=== PATIENT | male | born 1930 | race Caucasian/White ===

== ENCOUNTER 2017-02-08 21:45 | Emergency (ER) | payer MEDICARE, BC ==
--- NOTE | ~2017-02-08 | CR63 ---
[facility] A Service of [facility] RADIOLOGY TEXT RESULTS PATIENT: SANJANA WEST LOCATION: [facility] : 32 UNIT #: [id number] AGE: [address]: Shaggy Mendoza MD SEX: M ORDER DR: [id number] [facility] [address] [place], [place] [address] [id number] MR#: [id number] Acc #: [id number] NAME: SANJANA WEST : 1930 SEX: M STUDY DATE/TIME: 02/08/2017 23:12 UNIT: [facility] ROOM: STUDY DESCRIPTION: CR Chest 2 View Attending Physician: Shaggy Mendoza M.D. Ordering Physician: Shaggy Mendoza M.D. Primary Care Physician: Primary Care Physician No MEDICAL IMAGING REPORT This report is preliminary unless electronic signature is present EXAM Chest x-ray, 02/08 23:12 INDICATIONS Shortness of air, coughing fits and weakness that started about 2 hours ago. FINDINGS 2 views of the chest are compared with 01/14/[address] from 09/05/2016. Cardiac and mediastinal contours are normal. The lungs are emphysematous. There is some scarring at the left base. No pneumothorax is seen. There are a few granulomatous calcifications. IMPRESSION Emphysema but no definite active disease. There is some chronic scarring at the left base. Dictated by... Roni Rosado Jr., M.D. THIS IS AN ELECTRONICALLY VERIFIED REPORT Roni Rosado Jr., M.D. at 02/09/2017 6:01 AM ARTI/eddie TD: 02/09/2017 00:33 JOB #: [id number] MEDICAL IMAGING REPORT Page 1 of 1 COPY
[~2017-02-08 21:45] MED LIST: AMARYL PO; AMLODIPINE BESYL5 MG PO; COZAAR100 MG PO; LOPRESSOR PO; MELOXICAM15 MG PO; METFORMIN HCL500 M1 PO; NIACIN1000 MG PO; OMEPRAZOLE40 M1 PO; SIMVASTATIN40 MG PO
[2017-04-06] MEDS ORDERED: BREO ELLIPTA 11 EACH INH (08:17)
[2017-04-06] MEDS ORDERED: MOBIC PO (08:18)
[2017-04-06] MEDS ORDERED: ALBUTEROL17 GM INH (08:18)
[2017-04-06] MEDS ORDERED: INCRUSE ELLI62.5 MCG INH (08:18)
[2017-04-06] MEDS ORDERED: METFORMIN HCL500 M1 PO (08:19)
[2017-04-06] MEDS ORDERED: LOPRESSOR PO (08:19)
[2017-04-06] MEDS ORDERED: AMLODIPINE BESY10 MG PO (08:20)
[2017-04-06] MEDS ORDERED: NIASPAN1000 M1 PO (08:20)
[2017-04-06] MEDS ORDERED: LOSARTAN POTAS100 MG PO (08:20)
[2017-04-06] MEDS ORDERED: ZOCOR20 MG PO (08:20)
== END 2017-02-09 01:23 | disposition home or self-care (01) ==
LOC: CED 21:45
DX: R06.02 Shortness of breath (principal); R05 Cough; E11.9 Type 2 diabetes mellitus without complications; I10 Essential (primary) hypertension; Z79.84 Long term (current) use of oral hypoglycemic drugs; Z79.899 Other long term (current) drug therapy
CPT/HCPCS: 71020; 99284

== ENCOUNTER → 2017-02-16 | Outpatient (CLI) | payer MEDICARE, BC ==
[~2017-02-16] MED LIST changes: +ALBUTEROL17 GM INH; +AMLODIPINE BESY10 MG PO; +BREO ELLIPTA 11 EACH INH; +INCRUSE ELLI62.5 MCG INH; +LORCET 5-325 M1 EACH PO; +LOSARTAN POTAS100 MG PO; +MOBIC PO; +NIASPAN1000 M1 PO; +ZOCOR20 MG PO
--- NOTE | ~2017-02-16 | CT57 ---
[facility] A Service of [facility] & [facility] RADIOLOGY TEXT RESULTS PATIENT: SANJANA WEST [facility] : 32 UNIT #: [id number] AGE: [address]: Jamie Johnson MD SEX: M ORDER DR: [id number] [facility] [address] [place], [place] [address] [id number] O MR#: [id number] Acc #: [id number] NAME: SANJANA WEST. : 1930 SEX: M STUDY DATE/TIME: 02/16/2017 14:28 UNIT: [facility] ROOM: STUDY DESCRIPTION: CT Chest Wo Cont Attending Physician: Jamie Johnson M.D. Referring Physician: Jamie Johnson M.D. Ordering Physician: Jamie Johnson M.D. Primary Care Physician: William Bronson M.D. MEDICAL IMAGING REPORT This report is preliminary unless electronic signature is present EXAM CT chest without contrast DATE 02/16/2017 HISTORY 86-year-old male with history of lung cancer. Observation metastatic disease. Restaging. Cough and shortness of breath for 1 week. Additional history of prostate cancer with surgery. Left lower lobe lung resection. Abdominal aortic aneurysm. Thyroid disease. Diabetes. COMPARISON CT chest without contrast 09/05/2016. PROCEDURE 5 mm axial images through the chest without contrast. Sagittal and coronal reformed images were obtained. This CT exam was performed with one or more of the following radiation dose reduction techniques: automatic control, adjustment of mA and/or kV according to patient size, and iterative reconstruction. FINDINGS There is a new lobulated noncalcified nodule within the left upper lobe abutting the mediastinum, measuring approximately 2.8 x 1.5 cm, highly worrisome for recurrent malignancy. Two additional 4-5 mm noncalcified nodules are demonstrated more posteriorly and inferiorly within the left upper lobe (series 4 image 29 and image 30), new since previous exam. There is chronic scarring in the left lower lobe at site of patient's prior partial left lung resection, there is chronic scarring in the right apex. Mild to moderate severe changes present. STS. [facility] A Service of [facility] & [facility] RADIOLOGY TEXT RESULTS PATIENT: SANJANA WEST LOCATION: [facility] : 32 UNIT #: [id number] AGE: [address]: Jamie Johnson MD SEX: M ORDER DR: No definite hilar, axillary or supraclavicular adenopathy is seen. There is a new right adrenal nodule measuring 1.5 x 1.1 cm worrisome for metastatic disease. Remainder of included upper abdominal organs are within normal limits. Incidental note is made of a single tiny gallstone. Hemangioma within the T8 vertebral body is unchanged. There is a new osteolytic lesion within the T11 vertebral body on the left posteriorly measuring 9 mm. It is worrisome for potential osseous metastatic disease. Dense coronary artery calcifications are noted. There is moderate calcific atherosclerosis in the thoracic aorta. No pericardial effusion. No pleural effusion. IMPRESSION 1. Findings consistent with disease recurrence in the chest. A new lobulated 2.8 x 1.5 cm nodule has developed in the paramediastinal left upper lobe, highly suspicious for malignancy, and there are 2 additional nodules more inferiorly in the left upper lobe measuring between 4-5 mm. 2. There is a new right adrenal nodule measuring 1.5 x 1.1 cm highly suspicious for metastatic disease. 3. There is a new osteolytic lesion within the T11 vertebral body measuring 9 mm worrisome for metastatic disease. 4. Additional CT findings include partial left lower lobe lung resection, calcific atherosclerosis in the thoracic aorta and coronary arteries, emphysema, uncomplicated cholelithiasis. Dictated by... Soniya Guerrero M.D. THIS IS AN ELECTRONICALLY VERIFIED REPORT Soniya Guerrero M.D. at 02/17/2017 2:23 PM BUSTER/kari TD: 02/16/2017 19:17 JOB #: [id number] MEDICAL IMAGING REPORT Page 1 of 1 COPY
== END | disposition home or self-care (01) ==
LOC: CCAT 13:21
DX: C34.90 Malignant neoplasm of unspecified part of unspecified bronchus or lung (principal); E27.8 Other specified disorders of adrenal gland; I70.0 Atherosclerosis of aorta; M89.8X8 Other specified disorders of bone, other site; I25.10 Atherosclerotic heart disease of native coronary artery without angina pectoris; K80.20 Calculus of gallbladder without cholecystitis without obstruction
CPT/HCPCS: 71250

== ENCOUNTER → 2017-03-31 | Outpatient (CLI) | payer MEDICARE, BC ==
--- NOTE | ~2017-03-31 | MR17 ---
[facility] A Service of [facility] RADIOLOGY TEXT RESULTS PATIENT: SANJANA WEST LOCATION: [facility] : 32 UNIT #: [id number] AGE: [address]: Yuli Mariscal MD SEX: M ORDER DR: [id number] [facility] [address] [place], [place] [address] [id number] O MR#: [id number] Acc #: [id number] NAME: SANJANA WEST. : 1930 SEX: M STUDY DATE/TIME: 03/31/2017 17:31 UNIT: [facility] ROOM: STUDY DESCRIPTION: MR Brain WWo Contrast Attending Physician: Yuli Mariscal M.D., Ph.D. Referring Physician: Yuli Mariscal M.D., Ph.D. Ordering Physician: Yuli Mariscal M.D., Ph.D. Primary Care Physician: William Bronson M.D. MRI CENTER REPORT This report is preliminary unless electronic signature is present. EXAM Brain MRI with and without contrast 03/31/[address] with and without contrast 11/18/2015. CLINICAL HISTORY History of lung cancer, and recent abnormal PET scan demonstrating abnormal signal and possible bony lysis in the right C1 lateral mass, PET scan approximate 3 weeks previous. PROCEDURE Routine brain MR with and without contrast FINDINGS There is moderately advanced cerebral volume loss, but there is no hydrocephalus or extraaxial fluid collection. There is no intracranial restricted diffusion though there is faint restricted diffusion in the right C1 articular mass. Normal flow voids are seen in the cerebral vessels. There is moderate nonspecific white matter change but no evidence of hemorrhage or mass or mass effect. Postcontrast images again show some enhancement in the right C1 lesion but no intracranial abnormal enhancement. Scrutiny of the PET/CT and MRI sagittal noncontrast images also reveals a small lesion in medial aspect of the right brain medial aspect of the right C2 articular mass. IMPRESSION 1. No evidence of intracranial metastatic disease. However, review of CT and PET/CT and MR images reveal there are actually two cervical spine lesions at or near the craniocervical junction, 1 involving the STS. [facility] A Service of [facility] RADIOLOGY TEXT RESULTS PATIENT: SANJANA WEST LOCATION: [facility] : 32 UNIT #: [id number] AGE: [address]: Yuli Mariscal MD SEX: M ORDER DR: right C1 articular mass and 1 involving the right C2 articular mass medially. Both are actually better seen on the PET/CT of 03/07/2017. 2. No other bony lesions are seen. Again no evidence of intracranial metastatic disease or hemorrhage or intracranial mass effect. Dictated by... Agus Stover M.D. THIS IS AN ELECTRONICALLY VERIFIED REPORT Agus Stover M.D. at 04/05/2017 10:32 AM LIN/maren TD: 04/03/2017 14:09 JOB #: [id number] MRI CENTER REPORT Page 1 of 1 COPY
[2017-03-31 17:26] LABS: POC - CREATININE 1.4 mg/dL (0.64-1.27)
== END | disposition home or self-care (01) ==
LOC: CMRI 16:36
PROVIDERS: Internal Medicine Hematology & Oncology
DX: C34.80 Malignant neoplasm of overlapping sites of unspecified bronchus and lung (principal)
CPT/HCPCS: 70553; 82565; A9577

== ENCOUNTER → 2017-04-06 | Outpatient (CLI) | payer MEDICARE, BC ==
--- NOTE | ~2017-04-06 | XA60 ---
[facility] A Service of [facility] RADIOLOGY TEXT RESULTS PATIENT: SANJANA WEST LOCATION: [facility] : 32 UNIT #: [id number] AGE: [address]: Jamie Johnson MD SEX: M ORDER DR: [id number] [facility] [address] [place], [place] [address] [id number] O MR#: [id number] Acc #: [id number] NAME: SANJANA WEST. : 1930 SEX: M STUDY DATE/TIME: 04/06/2017 9:24 UNIT: [facility] ROOM: STUDY DESCRIPTION: XA BX Perc Liver Attending Physician: Jamie Johnson M.D. Referring Physician: Jamie Johnson M.D. Ordering Physician: Jamie Johnson M.D. Primary Care Physician: William Bronson M.D. MEDICAL IMAGING REPORT This report is preliminary unless electronic signature is present EXAM Ultrasound-guided liver biopsy HISTORY Previous history of prostate cancer and lung cancer with 2 PET avid liver lesions. Evaluate for malignancy suspected. TECHNIQUE The procedure was explained to the patient including risks, benefits and complications. Informed consent was obtained and a formal time-out procedure was utilized. Sterile technique was utilized with ChloraPrep skin preparation, sterile drapes and sterile ultrasound gel with ultrasound probe cover. Conscious sedation was employed with intravenous Versed and Fentanyl that was administered by nursing who was present and monitoring the patient during the examination. Total physician face time during conscious sedation 15 minutes. Using sterile technique and following local anesthesia with 1% Xylocaine an 18-gauge biopsy gun was used to obtain three cores of tissue from the liver mass. The tissue was placed in formalin and sent for appropriate stains and analysis. The patient tolerated the procedure well. He will kept on bedrest for four hours following the biopsy with close monitoring of vital signs. IMPRESSION Technically successful core liver biopsy with conscious sedation using ultrasound guidance. Dictated by... Roni Garcia M.D. THIS IS AN ELECTRONICALLY VERIFIED REPORT Roni Garcia M.D. at 04/06/2017 4:33 PM [facility] A Service of [facility] & [facility] RADIOLOGY TEXT RESULTS PATIENT: SANJANA WEST LOCATION: [facility] #: [id number] : 32 UNIT #: [id number] AGE: [address]: Jamie Johnson MD SEX: M ORDER DR: SUJATA/lisa TD: 04/06/2017 13:30 JOB #: [id number] MEDICAL IMAGING REPORT Page 1 of 1 COPY
[2017-04-06 08:18] LABS: HEMOGLOBIN 12.3 gm/dL (13.0-16.0); MEAN CELL VOLUME 85.3 FL (83-96); MEAN CORPUSCULAR HEMOGLOBIN 28.4 PG (28-34); MEAN CORPUSCULAR HGB CONC 33.3 g/dL (30-36); MEAN PLATELET VOLUME 6.6 FL (6.5-11.5); RED BLOOD COUNT 4.33 X10e (3.90-5.60); RED CELL DISTRIBUTION WIDTH 13.2 % (11.0-15.5); WHITE BLOOD COUNT 11.1 X10e3 (4.0-10.5)
[2017-04-06 08:44] LABS: PARTIAL THROMBOPLASTIN TIME 28.5 SECONDS (23.5-31.3); PROTHROMBIN TIME (PATIENT) 11.1 SECONDS (10.0-11.7)
== END | disposition home or self-care (01) ==
LOC: CIVR 07:52
PROVIDERS: Surgery
DX: C22.9 Malignant neoplasm of liver, not specified as primary or secondary (principal); Z85.46 Personal history of malignant neoplasm of prostate; Z85.118 Personal history of other malignant neoplasm of bronchus and lung
CPT/HCPCS: 36415; 76942; 85027; 85610; 85730; 88307; 88341; 88342; J2250; J3010

== ENCOUNTER 2017-05-21 22:37 | Inpatient (IN) | payer MEDICARE, BC ==
[~2017-05-21] VITALS: Ht 157.5 cm; Wt 74.1 kg
--- NOTE | ~2017-05-21 | HP ---
Unit #: [id number] #: [id number] Patient: SANJANA WEST [id number] [address] [address] [id number] I MR#: [id number] NAME: SANJANA WEST. ROOM: 332 Age: 87 Sex: M Admission Date: 05/23/2017 : 1930 Attending Physician: Yomi Box M.D. Primary Care Physician: William Bronson M.D. HISTORY AND PHYSICAL CHIEF COMPLAINT Pain. HISTORY OF PRESENT ILLNESS The patient is an 87-year-old male who presented to [facility] Emergency Department with a complaint of back pain. It had started several days prior to presentation and was without alleviating factors. It was severe and worse with lying flat. The patient had some associated urinary retention. PAST MEDICAL HISTORY 1. Diabetes. 2. Hypertension. 3. Hyperlipidemia. 4. Lung cancer. 5. Metastatic prostate cancer. PAST SURGICAL HISTORY 1. Prostatectomy. 2. Aneurysm repair. 3. Left lobectomy. SOCIAL HISTORY The patient quit drinking alcohol 40 years ago, quit smoking cigarettes many years ago, and denies illicit drug use. FAMILY HISTORY Reviewed and noncontributory in this 87-year-old male. ALLERGIES No known drug allergies. HOME MEDICATIONS 1. Ventolin 2 puffs q.i.d. 2. Hydrocodone and acetaminophen 5/325 at 1 p.o. q.4 hours p.r.n. 3. Niaspan 1000 mg p.o. daily. 4. Zocor 20 mg p.o. daily. 5. Losartan 100 mg p.o. daily. 6. Norvasc 10 mg daily. 7. Metformin 500 mg p.o. daily. 8. Lopressor 50 mg p.o. b.i.d. 9. Mobic 15 mg p.o. daily. REVIEW OF SYSTEMS Unit #: [id number] #: [id number] Patient: SANJANA WEST A 10-point review of systems was obtained and negative except as per HPI. PHYSICAL EXAMINATION VITAL SIGNS: Temperature 98.7, pulse 110, and blood pressure 132/73. GENERAL: An 87-year-old male in moderate distress secondary to pain. HEENT: Pupils equally round. Extraocular movements intact. Mucous membranes dry. NECK: Supple. No JVD, no lymphadenopathy. CARDIAC: Regular rate and rhythm. No murmurs, gallops, or rubs. LUNGS: Clear to auscultation bilaterally. ABDOMEN: Nontender and nondistended. Positive bowel sounds. EXTREMITIES: No clubbing, cyanosis, or edema. They are warm and dry. PSYCHIATRIC: Alert and oriented x3. Affect is appropriate. NEUROLOGIC: Cranial nerves II-XII intact grossly. Patient moves all extremities equally and with purpose. SKIN: No rashes, bruises, or ulcers. MUSCULOSKELETAL: The patient has severe lower back pain but no muscle pain and no muscle or joint swelling. DIAGNOSTIC STUDIES LABORATORY: Creatinine is 1.6. White count is 24. Urinalysis seems consistent with a urinary tract infection. ASSESSMENT AND PLAN 1. Intractable pain. The patient has been started on Percocet and IV morphine as needed. Additionally, Hematology/Oncology is to see for further pain medication recommendations. 2. Urinary retention. A Linn catheter has been placed, and a consult has been placed to Urology. 3. Acute kidney injury. The patient's creatinine is 1.6 with eGFR of 38. This is likely secondary to obstruction and should resolve with Linn catheter placement and resolution of obstruction. 4. Metastatic prostate cancer. The patient will be undergoing palliative radiation. 5. Prophylaxis. The patient has been started on lovenox. 1. Dictated by Neto Oshea/rojelio TD: 05/23/2017 17:42 JOB #: [id number] HISTORY AND PHYSICAL Page 1 of 1 X Yomi Box MD HISTORY AND PHYSICAL
--- NOTE | ~2017-05-21 | CO ---
Unit #: [id number] #: [id number] Patient: JOSE WEST [id number] [facility] [place], [place] [address] [id number] I MR#: [id number] NAME: JOSE WEST ROOM: 332 Age: 87 Sex: M Admission Date: 05/23/2017 : 1930 Attending Physician: Yomi Box M.D. Primary Care Physician: William Bronson M.D. Consultation Date: 05/22/2017 CONSULTATION REPORT REQUESTING PHYSICIAN Dr. Anders. REASON FOR CONSULTATION Metastatic cancer, please evaluate. HISTORY OF PRESENT ILLNESS Mr. Jose West is 87 years old, followed by Dr. Brit Mariscal, who was admitted to the hospital through emergency room on 05/21/2017. Mr. 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 An event upon to celebrate his 87th birthday to see the [facility] driving up on Monday. While driving up on Monday, he had worsening of previous chronic back pain, and on Monday, when he dressed up for the game, pain became so excruciating that he canceled the game and was admitted to a hospital in [place]. Records from the hospital showed acute urinary retention, for which he had a Linn catheter placed and he was asked to return immediately to [place] be see in the Emergency Room, and readmitted for possibility of a cord compression. Mr. West tells me that his pain is better controlled with his pain medications currently. He was scheduled to start his first cycle of chemotherapy with gemcitabine later this week. His appetite has been poor and he has lost weight, but has had no fever, cough, or chills. He has been started on Rocephin for urinary tract infection as well. PAST MEDICAL HISTORY Hypertension, COPD, gastroesophageal reflux disease, abdominal aortic aneurysm, and prostate cancer for which he underwent radical prostatectomy in 1996. He underwent resection of a non-small cell lung cancer, underwent left superior segmentectomy in 10/2015, pathology revealed two foci of invasive moderately differentiated squamous cell carcinoma, one measuring 2.4 and 1.8 cm with final stage being T3, N0. 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 He is scheduled to receive his first cycle of gemcitabine. PAST SURGICAL HISTORY Includes left lung segmentectomy, tonsillectomy, appendectomy, cataract surgery, and carpal tunnel release. FAMILY HISTORY Positive for two brothers and two sisters with lung cancer. SOCIAL HISTORY Unit #: [id number] #: [id number] Patient: JOSE WEST Quit smoking prior to his lung cancer surgery in 2016. Rarely drinks any alcohol. REVIEW OF SYSTEMS A 14-point review of systems was taken. CONSTITUTIONAL: As discussed. EYES: Negative. EARS, NOSE, MOUTH, AND THROAT: Negative. CARDIOVASCULAR: No chest pain or palpitation. RESPIRATORY: Negative. GASTROINTESTINAL: No recent change in bowel habits. GENITOURINARY: Urinary retention as discussed. MUSCULOSKELETAL: Severe low back pain. ALLERGIC: Negative. SKIN: Negative. NEUROLOGIC: Denies any numbness in his perirectal area. Some difficulty walking secondary to pain. LYMPHATIC: Negative. ENDOCRINE: Negative. PHYSICAL EXAMINATION GENERAL: He is a pleasant elderly man, lying in bed, currently in no distress. VITAL SIGNS: Temperature 97.6, pulse is 101, respirations 18, blood pressure 136/79, and O2 saturation 92% on room air. HEENT: Pupils are equal and reactive well to light. No pallor or icterus. Mucous membranes are moist. NECK: Without adenopathy, JVD, or thyromegaly. CARDIOVASCULAR: First and second heart sounds are heard and regular. No murmurs, gallops, or rubs. LUNGS: Chest expansion is symmetric. Bilaterally equal air entry. Normal breath sounds. ABDOMEN: Soft and nontender. Bowel sounds are active. No organomegaly. EXTREMITIES: Warm. Good pulses. No edema, cyanosis, or clubbing. RECTAL: Rectal tone appears preserved and there is no caudal anesthesia. NEUROLOGIC: He is awake, alert, and oriented x3 without any focal findings. SKIN: Negative. LYMPHATICS: Negative. DIAGNOSTIC STUDIES LABORATORY RESULTS: UA shows specific gravity of 1.024, pH is 5, leukocyte esterase is 2+. CBC with a white count of 24,200; hemoglobin 11.7; platelet count is 247,000. BMP shows a BUN of 52, creatinine is 1.6, EGFR of 38.7, lactic acid is 1.2. IMAGING RESULTS: Chest x-ray, single view, was personally reviewed by me and shows minimal bilateral pleural effusions. RADIOLOGY RESULTS: CT scan of the lumbar spine was personally reviewed by me and shows lytic lesion of the S1 and ilium, which appear larger compared to his previous scans. ASSESSMENT AND PLAN Mr. 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 He is now admitted Unit #: [id number] #: [id number] Patient: JOSE WEST with severe back pain, acute urinary retention with findings all concerning for cauda equina syndrome. I discussed with Mr. West and his family present at bedside. We will get a stat MRI of the lumbosacral spine to delineate relationship of the metastatic disease to cauda equina, we will start him on intravenous dexamethasone and as he is a diabetic, plan sliding scale insulin in view of the hyperglycemia and consult Radiation Oncology. I spoke to Dr. Dickey, apprised of the urgent nature of the situation and the need for urgent radiation therapy, where he will see him in consultation as soon as possible. In interim, I would continue IV antibiotics while awaiting the results of his urine cultures and consult first Urology with Dr. Robles and Dr. Prieto to see and evaluate for his urinary retention. Dictated by... Stephen Lopez M.D. BARI/serene TD: 05/24/2017 13:59 JOB #: [id number] CONSULTATION REPORT Page 1 of 1 X Stephen Lopez MD CONSULTATION REPORT
--- NOTE | ~2017-05-21 | CR72 ---
[facility] A Service of [facility] RADIOLOGY TEXT RESULTS PATIENT: SANJANA WEST LOCATION: [facility] 332-01 : 32 UNIT #: [id number] AGE: [address]: Yomi Box MD SEX: M ORDER DR: [id number] [facility] [address] [place], [place] [address] [id number] I MR#: [id number] Acc #: [id number] NAME: SANJANA WEST : 1930 SEX: M STUDY DATE/TIME: 05/22/2017 1:02 UNIT: [address] ROOM: [facility] STUDY DESCRIPTION: CR Chest Single View Portable Attending Physician: Yomi Box M.D. Ordering Physician: Jose Dixon M.D. Primary Care Physician: William Bronson M.D. MEDICAL IMAGING REPORT This report is preliminary unless electronic signature is present EXAM Portable chest HISTORY Shortness of air and cough for 2 days. Recent pneumonia. FINDINGS Cardiac size and pulmonary vascularity are within normal limits. Mildly tortuous descending thoracic aorta. Minimal bilateral pleural effusions. Surgical staple line left lower lung. IMPRESSION Minimal bilateral pleural effusions. No focal infiltrates. Dictated by... Mick Alegria M.D. THIS IS AN ELECTRONICALLY VERIFIED REPORT Mick Alegria M.D. at 05/22/2017 10:29 PM DFBelen/tyrell TD: 05/22/2017 12:09 JOB #: [id number] MEDICAL IMAGING REPORT Page 1 of 1 COPY
--- NOTE | ~2017-05-21 | CO ---
Unit #: [id number] #: [id number] Patient: JOSE WEST [id number] [address] [place], [place] [address] [id number] I MR#: [id number] NAME: JOSE WEST. ROOM: 332 Age: 87 Sex: M Admission Date: 05/23/2017 : 1930 Attending Physician: Yomi Box M.D. Primary Care Physician: William Bronosn M.D. Consultation Date: 05/23/2017 CONSULTATION REPORT DIAGNOSES 1. 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 2. 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 3. Distant history of prostatic adenocarcinoma. CHIEF COMPLAINT Severe pain in the upper and lower back. HISTORY OF PRESENT ILLNESS Mr. Jose West is an 86-year-old gentleman who has numerous medical problems. He was diagnosed with carcinoma of the prostate and underwent radical prostatectomy with Dr. Shaggy Shrestha in 1998. The patient subsequently was seen for a mass in the lung and underwent segmentectomy with Dr. Jamie Johnson, in 11/2015. He has been followed with no evidence of active disease. He has more recently developed extensive metastatic disease including lung, liver, and bone. The patient was seen by Dr. Yuli Mariscal on 04/13/2017 and this was after a liver biopsy had been obtained. This ultrasound-guided study dated 04/06/2017 was positive for adenocarcinoma most likely of pancreas of possible hepatobiliary tract. It should be noted that EGFR staining was negative on laryngeal lung pathology. PD-L1 staining also negative on the pathology. The more recent pancreaticobiliary cancer demonstrated TTF-1 which was negative, so this is likely not lung malignancy. Plans were to begin single agent Gemzar therapy as this would likely of this gentleman would tolerate. Prior to that however he was admitted for severe pain in the upper back as well as the hip region. He had some muscle weakness as well. A CT scan of the lumbar spine with contrast was obtained on 05/22/2017. This was remarkably abnormal study with progressive lytic disease of the lower thoracic and lung spine, SI joints, and left ilium. There are lesions measuring up to 3.8 cm in diameter. A specific concern was at least 2 cm lesion in the posterior margin of T11 with possible cord compression. The patient was admitted and underwent MRI of the lumbar spine. The health information systems technician also obtained images of T10 and T11. There was disease in both of these areas, but no evidence of cord compression. There was extensive disease within the sacrum as well. As a result, that was consulted regarding palliative therapy. RECOMMENDATIONS Mr. West is a candidate for palliative radiotherapy to the upper and lower spines. His most symptomatic area is that of the thoracic spine. As a result, we will proceed with stereotactic body radiotherapy with plans to give a total of 24 Gy with 3 fractions. The patient underwent Unit #: [id number] #: [id number] Patient: JOSE WEST simulation on 05/22 and first treatment today 05/23/2017. This was well tolerated. The patient will then require palliative radiotherapy to the sacrum with plans to administer approximately 36 Gy over normal fractionation to this region. The patient will then be a candidate for Gemzar therapy with Dr. Mariscal. Hopefully, this will provide him rapid pain relief. It should be noted the patient has been staged with brain MRIs on 03/31/2017 with no evidence of metastatic disease. It is my pleasure to participate in his care. PAST MEDICAL HISTORY The patient has history of abdominal aortic aneurysm in 2000, history of cataracts. He has undergone left lung lobectomy, appendectomy, tonsillectomy. The patient has cholecystectomy as well. He has had left and right carpal tunnel surgery. He underwent colonoscopy for diverticulitis with Dr. Richy Salazar. He denies diabetes, respiratory illness. He denies sleep apnea. Has systemic hypertension with nonpsychiatric illness. Gastrointestinal difficulty. He is hard of hearing. He has severe disk problems of his upper and lower back. He suffers from obesity. SOCIAL HISTORY The patient is reformed smoker, but has approximately 30 pack years. He did not drink on medications for systemic hypertension as previously noted. REVIEW OF SYSTEMS As above. The patient does report some weakness of the lower extremities which is likely due to pain and guarding. He denies urinary bladder difficulties. No seizure activity. PHYSICAL EXAMINATION VITAL SIGNS: Temperature 98.2, pulse 88, respirations 18, O2 saturations 95%, blood pressure 126/60, height 5 feet 2 inches, weight 147 pounds, BMI 30. HEENT: Pupils equal, round, reactive to light and accommodation. Extraocular movements are within normal limits. NECK: Palpated and found to be without adenopathy. LUNGS: Demonstrated extremely distant breath sounds. The patient has no muscle weakness of the upper extremities. CARDIOVASCULAR: Regular rhythm. No obvious gallop or murmur. ABDOMEN: Obese, nontender. No evidence of mass. Bowel sounds positive. EXTREMITIES: Lower extremities are examined. The patient has no specific muscle weakness. His plantar and dorsiflexion are extremely strong in both legs. He is able to raise both legs from examining room table. GENITOURINARY: He has urinary catheter in place. He was suffering from urinary retention and has been seen by Dr. Miguel Prieto, during this hospital admission. The urine is clear with no hematuria. DIAGNOSTIC STUDIES LABORATORY RESULTS: Glucose 188, BUN 33, creatinine 1.1. Sodium 104, potassium 5.0, albumin 3.5. Liver enzymes demonstrate elevation of alkaline phosphatase of 109. PSA 0.02. Serum testosterone 100.9. WBC 20.2, hemoglobin 12.6, platelet count 232,000. Approximately 60 minutes spent on discussion the case with the patient. Dictated by... Sotero Dickey M.D. Unit #: [id number] #: [id number] Patient: JOSE WEST MRJ/modl TD: 05/24/2017 15:53 JOB #: [id number] CC: Yuli Mariscal M.D., Ph.D. Neto Peres M.D. CONSULTATION REPORT Page 1 of 1 X Sotero Dickey MD X CONSULTATION REPORT
--- NOTE | ~2017-05-21 | DS ---
Unit #: [id number] #: [id number] Patient: SANJANA WEST [id number] [address] [address] [id number] I MR#: [id number] NAME: SANJANA WEST ROOM: 332 Age: 87 Sex: M Admission Date: 05/23/2017 : 1930 Discharge Date: 05/29/2017 Attending Physician: Yomi Box M.D. Primary Care Physician: William Bronson M.D. DISCHARGE SUMMARY REASON FOR ADMISSION Intractable pain. HISTORY OF PRESENT ILLNESS Patient is a very pleasant 87-year-old male, prior history of hypertension, hyperlipidemia, diabetes, lung carcinoma, and currently metastatic prostate carcinoma who presented secondary to intractable back pain. He was seen in consultation by both urology services as well as oncology services. After review, discussion with patient's family and undergoing CT abdomen and pelvis, Dr. Lopez and associates recommended to stop radiation as benefit versus risk ratio seemed to favor that there was very little that radiation could do at this point in time. Once radiation was discontinued, palliative measures were initiated with appropriate pain control and hospice services were subsequently consulted. At this point in time, after review by hospice, patient will likely be transferred to hospice scatter bed program and later consideration may be given to inpatient hospice facilities. Overall, and unfortunately, patient's senior living prognosis is poor. FINAL/CURRENT CLINICAL DIAGNOSIS 1. Metastatic prostate carcinoma. 2. Prior history of lung carcinoma. 3. Hyperlipidemia. 4. Hypertension. 5. Diabetes. DISCHARGE MEDICATIONS Discharge medications are as per hospice team once seen and evaluated later this afternoon. Dictated by... Nadya Ahmadi M.D. CARI/simone TD: 05/29/2017 17:13 JOB #: [id number] Unit #: [id number] #: [id number] Patient: SANJANA WEST DISCHARGE SUMMARY Page 1 of 1 X Nadya Ahmadi MD DISCHARGE SUMMARY
--- NOTE | ~2017-05-21 | MR112 ---
[facility] A Service of [facility] & [facility] / [facility] RADIOLOGY TEXT RESULTS PATIENT: SANJANA WEST LOCATION: C3A 332-01 : 32 UNIT #: [id number] AGE: [address]: Yomi Box MD SEX: M ORDER DR: [id number] [facility] [address] [place], [place] [address] [id number] I MR#: [id number] Acc #: [id number] NAME: SANJANA WEST. : 1930 SEX: M STUDY DATE/TIME: 05/22/2017 12:31 UNIT: A U ROOM: [facility] STUDY DESCRIPTION: MR Lumbar WWo Contrast Attending Physician: Yomi Box M.D. Ordering Physician: Stephen Lopez M.D. Primary Care Physician: William Bronson M.D. MRI CENTER REPORT This report is preliminary unless electronic signature is present. EXAM Lumbar spine with and without contrast HISTORY Prostate cancer, pancreatic cancer with metastatic disease to the lungs. History of abdominal aortic aneurysm repair and prostatectomy. Left lung lobectomy. Severe back pain for [address] scan with evidence for metastatic disease to the spine. Evaluate for cord compression. TECHNIQUE MRI of the lumbar spine was performed prior to and following intravenous administration of 14 cc of MultiHance. COMPARISON STUDIES There is a CT scan from 05/22/17 showing multiple lytic lesions consistent with metastatic disease. On the MRI, sagittal alignment is normal. There are multiple lesions which are supportive of the diagnosis of osseous metastasis. There is cellular marrow replacement in particular at T11 corresponding to the lytic lesion seen on the earlier CT scan. This lesion measures about 2.1 cm in maximum AP dimension, centered at the posterior cortex. There appears to be disruption of the posterior cortex, and some epidural extension of tumor. This is seen extending into the bilateral anterior epidural space with only mild mass effect on the anterior cord. The cord is still surrounded by CSF, and there is no significant cord compression at this time. The conus medullaris terminates at L1-L2 and is normal in size and signal intensity. In addition to the dominant mass in the posterior aspect of T11, there is a smaller metastasis in the more anterior superior T11 vertebral body to STS. [facility] A Service of [facility] & [facility] / [facility] RADIOLOGY TEXT RESULTS PATIENT: SANJANA WEST LOCATION: C3A 332-01 : 32 UNIT #: [id number] AGE: [address]: Yomi Box MD SEX: M ORDER DR: the left of midline. Other osseous metastatic lesions are appreciated focally at the inferior endplate of L1, posterior inferior aspect of L3, inferior anterior aspect of L5 to the right of midline and involving the superior aspect of S1 also to the right of midline. Additionally, there is a lesion in the right iliac bone adjacent to the sacroiliac joint. There is a lesion in the left iliac bone more posteriorly. Lesions are seen in the more inferior sacral ala left greater than right. In the axial plane, the right S1 lesion is about 4.5 x 2.2 cm dimension. It is not associated with obvious epidural extension of tumor, and there is no associated canal stenosis. The largest lesion at L3 measures about 1.3 x 2.1 cm dimension and is seen within the left posterior vertebral body inferiorly. It is associated with minimal extension of tumor into the epidural space, but no canal stenosis. Lytic lesions would be consistent with metastatic disease from lung cancer or pancreatic cancer, but would not be typical of prostate cancer metastatic disease. Partly seen in the retroperitoneum is treated abdominal aortic aneurysm with presumably excluded left iliac aneurysm. There is no evidence for lumbar canal stenosis secondary to osseous metastatic disease. There is lumbar degenerative disease. At T12-L1, there is mild concentric disc bulge with mild facet degenerative change, but no canal stenosis or foraminal compromise. At L1-L2, mild facet degenerative change and ligamentum flavum thickening bilaterally. Mild concentric disc bulge. Mild effacement of the thecal sac, but no canal stenosis. Mild inferior foraminal narrowing. At L2-L3, mild facet degenerative change bilaterally. Minor concentric disk bulge. No canal stenosis. Mild inferior foraminal narrowing. L3-L4, moderate facet degenerative change bilaterally. Mild concentric disc bulge with mild effacement of the anterior thecal sac, but no significant central canal stenosis. Mild inferior foraminal narrowing, left greater than right. L4-L5, moderate facet degenerative change bilateral with some ligamentum flavum thickening. Mild concentric disc bulge and mild effacement of the anterior thecal sac, and mild mass effect on the right lateral recess, but no central canal stenosis. [id number] right and mild left side foraminal narrowing. At L5-S1, there is severe right moderate to severe left side facet degenerative change with mild broadbased posterior disc bulge. There is no canal stenosis. There is mild bilateral foraminal narrowing. There is sacroiliac joint arthritis partly seen, likely bilateral adrenal metastatic disease. Small renal cyst noted bilateral. Postcontrast imaging shows predominantly enhancement of the presumed osseous metastases. There is no evidence for drop metastatic disease or pathologic intracanalicular enhancement. [facility]. [facility] A Service of [facility] RADIOLOGY TEXT RESULTS PATIENT: SANJANA WEST LOCATION: [facility] 332-01 : 32 UNIT #: [id number] AGE: [address]: Yomi Box MD SEX: M ORDER DR: IMPRESSION 1. Findings are most consistent with extensive lytic osseous metastatic disease involving the visualized lower thoracic spine, lumbar spine, visualized sacrum and iliac bones. Sample measurements are provided above. The largest destructive lesion is appreciated at T11. It is associated with posterior cortical disruption and a small amount of epidural extension of tumor into the anterior epidural space. There is some effacement of the anterior thecal sac, but there is no significant canal stenosis. At this time, there is no evidence for lumbar canal stenosis. There is nothing to suggest drop metastatic disease. 2. Please see above description of multiple lesions in the spine with some sample measurements provided above. Dictated by... Rachel Rivas M.D. THIS IS AN ELECTRONICALLY VERIFIED REPORT Rachel Rivas M.D. at 05/22/2017 5:32 PM ADALBERTO/jarvis TD: 05/22/2017 14:43 JOB #: [id number] MRI CENTER REPORT Page 1 of 1 COPY
--- NOTE | ~2017-05-21 | CO ---
Unit #: [id number] #: [id number] Patient: SANJANA WEST [id number] [address] [place], [place] [address] [id number] I MR#: [id number] NAME: SANJANA WEST. ROOM: 332 Age: 87 Sex: M Admission Date: 05/23/2017 : 1930 Attending Physician: Yomi Box M.D. Primary Care Physician: William Bronson M.D. Consultation Date: 05/23/2017 CONSULTATION REPORT CHIEF COMPLAINT Urinary retention. HISTORY OF PRESENT ILLNESS Mr. West is an 87-year-old gentleman, who had prostate cancer and underwent radical retropubic prostatectomy by my former partner, Dr. Shrestha in 1998. The patient states over the years, he had his PSA checked and there was no evidence of any abnormality or elevated PSA. I do not have any PSAs from his previous office visits. The patient was out of town. Had to have a catheter placed due to urinary retention and also inability to ambulate, unsure of the residual, this was done at [place]. MRI and CT scan done here suggests bony metastatic disease to his lumbar spine and also sacrum and iliac bones. The patient had a liver biopsy, which shows carcinoma, but finalization has not been done yet with staining. The assumption is he may have metastatic prostate cancer to the spine, I am not sure about the liver, I will obtain a PSA and a testosterone. Prior to this event, the patient denied having any problems urinating or ambulating. The patient report unable to urinate and had to have a catheter placed with his prostate being removed. One could assume he has retention due to spinal cord compression, but the MRI shows no evidence of spinal cord compression, may be due to constipation, the patient has not had a bowel movement in 4 days. The patient currently without any complaints. He seems to be resting comfortably. PAST MEDICAL HISTORY Prostate cancer, radical retropubic prostatectomy. Lung cancer, lobectomy. COPD, diabetic, high blood pressure. ALLERGIES No drug allergies. MEDICATIONS Ventolin, Mobic, metformin, Lopressor, Niaspan. FAMILY HISTORY Noncontributory. SOCIAL HISTORY Positive for smoking. PHYSICAL EXAMINATION GENERAL: He is alert. He is oriented. No acute distress. HEENT: Pupils equal and reactive to light. Unit #: [id number] #: [id number] Patient: SANJANA WEST NECK: Trachea is midline. CHEST: Benign. HEART: Benign. ABDOMEN: Soft. No rebound. No guarding. : Linn catheter in place. Urine is clear. EXTREMITIES: No clubbing, no cyanosis. As I mentioned, the patient is not ambulatory currently. DIAGNOSTIC STUDIES LABORATORY RESULTS: His creatinine 1.2. White count 21, hemoglobin 11. Urinalysis; 2+ leukocytes, 2+ blood, 10 to 25 white blood cells, no bacteria. Urine culture is pending. ASSESSMENT Urinary retention. History of prostate cancer. Metastatic disease to his back and spine. May have metastatic prostate cancer. We will obtain a PSA and testosterone. We will also order a CT of the abdomen and pelvis. Thank you for the chance to participate in his care. We will follow along with you. Dictated by... Miguel Prieto M.D. RICK/serene TD: 05/23/2017 16:15 JOB #: [id number] CONSULTATION REPORT Page 1 of 1 X Miguel Prieto MD X CONSULTATION REPORT
--- NOTE | ~2017-05-21 | CT4 ---
[facility] A Service of [facility] & [facility] / [facility] RADIOLOGY TEXT RESULTS PATIENT: SANJANA WEST LOCATION: [facility] 332-01 : 32 UNIT #: [id number] AGE: [address]: Yomi Box MD SEX: M ORDER DR: [id number] [facility] [address] [place], [place] [address] [id number] I MR#: [id number] Acc #: [id number] NAME: SANJANA WEST. : 1930 SEX: M STUDY DATE/TIME: 05/23/2017 14:39 UNIT: A U ROOM: [facility] STUDY DESCRIPTION: CT Abd and Pelv Wo Cont Attending Physician: Yomi Box M.D. Ordering Physician: Miguel Prieto M.D. Primary Care Physician: William Bronson M.D. MEDICAL IMAGING REPORT This report is preliminary unless electronic signature is present EXAM Abdomen and pelvis CT no contrast 05/23/2017 INDICATIONS 87-year-old male with history of prostate and lung cancer status post radiation therapy today. Low back pain. Urinary retention since 05/21/2017. TECHNIQUE Noncontrast CT of the abdomen and pelvis was performed. This CT exam was performed with one or more of the following radiation dose reduction techniques: automatic exposure control, adjustment of mA and/or kV according to patient size, and iterative reconstruction. COMPARISON STUDIES Comparison is made with PET/CT 03/07/2017 and MRI of the lumbar spine 05/22/2017. FINDINGS Trace right-sided effusion. Probable compressive atelectasis in the right lung base with atelectasis and scarring in both lung bases also present. There is no pneumothorax. Aorta demonstrates atherosclerotic change. There is ectasia of the infrarenal abdominal aorta. The patient status post aortobiiliac stent graft placement. There is ectasia of the cahto left common iliac artery up to 2.3 cm. The appearance is unchanged. Spleen demonstrates granulomatous calcification. The left adrenal gland demonstrates interval increase in fullness. This may represent new diffuse metastatic involvement given interval change from the prior CT. A right adrenal nodule measures up to 2.1 x 1.6 cm, slightly larger than on the prior study when measured 1.8 x 1.1 cm. The pancreas is unremarkable. [facility] A Service of [facility] RADIOLOGY TEXT RESULTS PATIENT: SANJANA WEST LOCATION: C3A 332-01 : 32 UNIT #: [id number] AGE: [address]: Yomi Box MD SEX: M ORDER DR: Gallbladder demonstrates uncomplicated cholelithiasis. There is a new subcapsular mass in the right hepatic lobe localizing to segment 8. This measures 2.3 x 2.5 cm and is most characteristic of metastatic disease until proven otherwise. Two previously identified masses in the right hepatic lobe localizing to segment 6 are larger measuring 2.7 and 2.4 cm respectively, previously 2 and 1.8 cm respectively. Kidneys demonstrate no hydronephrosis. There are renal vascular calcifications. Probable renal cysts. CT PELVIS: Bladder decompressed by a Linn catheter. There is air within the bladder secondary to Linn catheter placement. Prostate surgically absent. Stool burden suggests mild constipation. There is intermittent diverticulosis of the colon. No evidence of bowel obstruction. The appendix is surgically absent by history. Inguinal canals are unremarkable. There are multiple lytic metastases in the thoracolumbar spine. There has been interval progression since the prior PET/CT. There has been interval enlargement of a lytic lesion at T10 posteriorly and on the left now measuring 2.3 cm, previously 1.1 cm. There is posterior cortical disruption and encroachment of the lytic lesion upon the epidural space. This could be better evaluated with thoracic MR. Similarly at T11, there has been interval enlargement of a lytic lesion posteriorly with cortical breakthrough and encroachment upon the epidural space. This could also be better evaluated with thoracic MR and was also described on the recent lumbar MR. There is a lytic lesion in the right boni-sacrum measuring about 3.9 cm. There is a destructive soft tissue mass involving the superior pubic ramus on the right. The mass measures at least 5.2 x 3.5 cm. There are additional lytic lesions in the pelvis, including a lytic lesion in the left posterior iliac bone measuring 3.1 cm. IMPRESSION 1. Imaging findings most characteristic of interval progression of metastatic disease within the liver and in the thoracolumbar and lumbosacral spine. Enlarging liver lesions. Enlarging lytic bone lesions. 2. At T10 and T11, there is cortical breakthrough of the lytic lesions and involvement of the epidural space. This could be better assessed with thoracic MRI. 3. There is a new destructive or enlarging destructive mass in the right superior pubic ramus. 4. Probable atelectasis in the lung bases. [id number] right effusion. 5. Findings worrisome for a left adrenal metastasis. Enlarging right adrenal mass. 6. Additional CT findings as described in body of the report. [facility]. [facility] A Service of [facility] RADIOLOGY TEXT RESULTS PATIENT: SANJANA WEST LOCATION: A 332-01 : 32 UNIT #: [id number] AGE: [address]: Yomi Box MD SEX: M ORDER DR: STAT * RESULT Dictated by... Paul Briggs M.D. THIS IS AN ELECTRONICALLY VERIFIED REPORT Paul Briggs M.D. at 05/24/2017 6:39 AM Jorge TD: 05/23/2017 16:41 JOB #: [id number] MEDICAL IMAGING REPORT Page 1 of 1 COPY
--- NOTE | ~2017-05-21 | CT98 ---
[facility] A Service of [facility] RADIOLOGY TEXT RESULTS PATIENT: SANJANA WEST LOCATION: [facility] 332-01 : 32 UNIT #: [id number] AGE: [address]: Yomi Box MD SEX: M ORDER DR: [id number] [facility] [address] [facility]. [place], [place] [address] [id number] I MR#: [id number] Acc #: [id number] NAME: SANJANA WEST. : 1930 SEX: M STUDY DATE/TIME: 05/22/2017 1:20 UNIT: A PCU ROOM: [facility] STUDY DESCRIPTION: CT Lumbar Spine Wo Cont Attending Physician: Yomi Box M.D. Ordering Physician: Jose Dixon M.D. Primary Care Physician: William Bronson M.D. MEDICAL IMAGING REPORT This report is preliminary unless electronic signature is present EXAM CT lumbar spine without contrast HISTORY Back pain for 2 days. Urinary retention. No injury. FINDINGS This CT exam was performed with one or more of the following radiation dose reduction techniques: Automatic exposure control, adjustment of mA and/or kV according to patient size, and iterative reconstruction. CT lumbar spine without contrast demonstrates multiple destructive lesions in the lower thoracic and lumbar spine and in S1 and in the medial left ilium, new or larger than on PET CT 03/07/2017. These measure at least 2 cm in the posterior margin of T11, 2 cm in the right lateral margin of L5, up to 3.8 cm in S1, and 3 cm in the medial left ilium. These are characteristic of progressive lytic metastatic disease. No acute fracture or lumbar subluxation. Moderate multilevel degenerative and hypertrophic changes. At L1-2 and L2-3, there is mild diffuse degenerative disc bulging. At L3-4, there is vcqw-pf-sputfzyi diffuse disc bulging, slightly greater along the left posterolateral disc margin. At L4-5, there is mild diffuse disc bulging and bilateral facet hypertrophy causing mild central canal narrowing. At L5-S1, there is tikr-kc-naucmfrp diffuse disc bulging but no focal disc protrusion is identified. 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 [facility] A Service of [facility] RADIOLOGY TEXT RESULTS PATIENT: SANJANA WEST LOCATION: A 332-01 : 32 UNIT #: [id number] AGE: [address]: Yomi Box MD SEX: M ORDER DR: IMPRESSION 1. Progressive lytic metastatic disease in the lower thoracic and lumbar spine, right S1 and medial left ilium, with lesions measuring up to 3.8 cm. There has been interval progression of these findings compared to PET CT 03/07/2017. 2. No fracture. 3. Multilevel degenerative and hypertrophic changes. Dictated by... Mick Alegria M.D. THIS IS AN ELECTRONICALLY VERIFIED REPORT Mick Alegria M.D. at 05/22/2017 10:29 PM DFL/eddie TD: 05/22/2017 12:15 JOB #: [id number] MEDICAL IMAGING REPORT Page 1 of 1 COPY
[~2017-05-21 22:37] MED LIST changes: -LORCET 5-325 M1 EACH PO
[2017-05-22 00:38] LABS: URINE SOURCE CLEAN CATCH
[2017-05-22 00:41] LABS: URINE APPEARANCE CLOUDY; URINE BILIRUBIN NEG (NEG); URINE BLOOD 2+ (NEG); URINE COLOR YELLOW; URINE GLUCOSE NEG (NEG); URINE KETONE NEG (NEG); URINE LEUKOCYTE ESTERASE 2+ (NEG); URINE NITRATE NEG (NEG); URINE PROTEIN 2+ (NEG); URINE SPECIFIC GRAVITY 1.024 (1.003-1.035)
[2017-05-22 00:44] LABS: CULTURE INDICATED? YES; URINE BACTERIA AUWI NEG (NEGATIVE); URINE SQUAMOUS EPITHELIAL CELL OCC /[HPF]; UWBCS1 AUWI 25-50 (0-5)
[2017-05-22 00:45] LABS: HEMATOCRIT 35.2 % (38.0-50.0); HEMOGLOBIN 11.7 gm/dL (13.0-16.0); LYMPHOCYTE# 0.7 X10e3 (1.0-3.5); LYMPHOCYTE% 2.9 % (17.0-45.0); MEAN CELL VOLUME 86.1 FL (83-96); MEAN CORPUSCULAR HEMOGLOBIN 28.7 PG (28-34); MEAN CORPUSCULAR HGB CONC 33.3 g/dL (30-36); MEAN PLATELET VOLUME 6.5 FL (6.5-11.5); MONOCYTE# 1.3 X10e3 (0-1.0); MONOCYTE% 5.2 % (3.0-12.0); NEUTROPHIL# 22.2 X10e3 (1.5-7.1); NEUTROPHIL% 91.9 % (40-75); PLATELET COUNT 247 X10e3 (140-420); RED BLOOD COUNT 4.08 X10e (3.90-5.60); RED CELL DISTRIBUTION WIDTH 14.3 % (11.0-15.5); WHITE BLOOD COUNT 24.2 X10e3 (4.0-10.5)
[2017-05-22 00:46] LABS: DIFF IND YES
[2017-05-22 00:59] LABS: URINE MUCUS PRESENT
[2017-05-22 01:02] LABS: ALBUMIN SERUM 3.5 g/dL (3.5-5.0); BILIRUBIN, DIRECT 0.1 mg/dL (0.0-0.2); BILIRUBIN,INDIRECT 0.2 mg/dL (0.0-0.9); BILIRUBIN,TOTAL 0.3 mg/dL (0.2-2.0); BUN/CREATININE RATIO 32.5; CALCIUM SERUM 9.7 mg/dL (8.4-10.2); CREATININE SERUM 1.6 mg/dL (0.6-1.4); GLOM FILT RATE Estimated 38.7 mL/min (>60); POTASSIUM 3.7 mmol/L (3.5-5.1)
[2017-05-22 01:09] LABS: ANISOCYTOSIS SL; PLATELET ESTIMATE NORMAL (NORMAL)
[2017-05-22] MEDS ORDERED: LORCET 5-325 M1 EACH PO (02:51)
[2017-05-22] MEDS ORDERED: ALBUTEROL17 GM INH (02:53)
[2017-05-22 07:44] LABS: BASOPHIL% 0.1 % (0-2.5); HEMATOCRIT 32.5 % (38.0-50.0); HEMOGLOBIN 11.1 gm/dL (13.0-16.0); LYMPHOCYTE# 0.8 X10e3 (1.0-3.5); LYMPHOCYTE% 3.9 % (17.0-45.0); MEAN CELL VOLUME 85.8 FL (83-96); MEAN CORPUSCULAR HEMOGLOBIN 29.2 PG (28-34); MEAN PLATELET VOLUME 6.7 FL (6.5-11.5); MONOCYTE# 0.9 X10e3 (0-1.0); MONOCYTE% 4.1 % (3.0-12.0); NEUTROPHIL# 19.4 X10e3 (1.5-7.1); NEUTROPHIL% 91.9 % (40-75); PLATELET COUNT 200 X10e3 (140-420); RED BLOOD COUNT 3.79 X10e (3.90-5.60); RED CELL DISTRIBUTION WIDTH 14.7 % (11.0-15.5); WHITE BLOOD COUNT 21.1 X10e3 (4.0-10.5)
[2017-05-22 07:45] LABS: DIFF IND NO
[2017-05-22 07:59] LABS: BUN/CREATININE RATIO 34.16; CALCIUM SERUM 8.9 mg/dL (8.4-10.2); CREATININE SERUM 1.2 mg/dL (0.6-1.4); GLOM FILT RATE Estimated 54.8 mL/min (>60); POTASSIUM 3.7 mmol/L (3.5-5.1)
[2017-05-23 08:22] LABS: HEMATOCRIT 37.9 % (38.0-50.0); HEMOGLOBIN 12.6 gm/dL (13.0-16.0); MEAN CELL VOLUME 86.1 FL (83-96); MEAN CORPUSCULAR HEMOGLOBIN 28.6 PG (28-34); MEAN CORPUSCULAR HGB CONC 33.2 g/dL (30-36); MEAN PLATELET VOLUME 6.4 FL (6.5-11.5); RED BLOOD COUNT 4.4 X10e (3.90-5.60); RED CELL DISTRIBUTION WIDTH 14.4 % (11.0-15.5); WHITE BLOOD COUNT 20.2 X10e3 (4.0-10.5)
[2017-05-23 08:42] LABS: CALCIUM SERUM 9.5 mg/dL (8.4-10.2); CREATININE SERUM 1.1 mg/dL (0.6-1.4); GLOM FILT RATE Estimated 60.9 mL/min (>60)
[2017-05-23 09:17] LABS: TESTOSTERONE TOTAL 100.93 ng/dL (17-781)
[2017-05-23 09:23] LABS: PROSTATE SPECIFIC AG DIAG 0.02 ng/ml (0.0-4.0)
[2017-05-27 05:27] LABS: HEMATOCRIT 35.6 % (38.0-50.0); HEMOGLOBIN 11.5 gm/dL (13.0-16.0); MEAN CELL VOLUME 87.8 FL (83-96); MEAN CORPUSCULAR HEMOGLOBIN 28.5 PG (28-34); MEAN CORPUSCULAR HGB CONC 32.4 g/dL (30-36); RED BLOOD COUNT 4.05 X10e (3.90-5.60); RED CELL DISTRIBUTION WIDTH 14.8 % (11.0-15.5); WHITE BLOOD COUNT 15.5 X10e3 (4.0-10.5)
[2017-05-27 06:09] LABS: BUN/CREATININE RATIO 27.5; CALCIUM SERUM 9.8 mg/dL (8.4-10.2); CREATININE SERUM 1.6 mg/dL (0.6-1.4); GLOM FILT RATE Estimated 38.7 mL/min (>60); POTASSIUM 4.8 mmol/L (3.5-5.1)
== END 2017-05-29 15:30 | DRG 948 ==
LOC: CED 22:37 → C3A PCU 05-22 04:25 → CEDOF 05-22 04:25 → CED 05-22 04:25 → CEDOF 05-22 04:34 → CED 05-22 04:34 → CEDOF 05-22 07:28 → C3A PCU 05-22 07:28 → CEDOF 05-23 16:00 → C3A PCU 05-23 16:00
PROVIDERS: Emergency Medicine; Internal Medicine; Urology
DX: G89.3 Neoplasm related pain (acute) (chronic) (principal); N17.9 Acute kidney failure, unspecified; C25.9 Malignant neoplasm of pancreas, unspecified; C78.7 Secondary malignant neoplasm of liver and intrahepatic bile duct; C79.51 Secondary malignant neoplasm of bone; G83.4 Cauda equina syndrome; N39.0 Urinary tract infection, site not specified; E11.65 Type 2 diabetes mellitus with hyperglycemia; R62.7 Adult failure to thrive; Z85.46 Personal history of malignant neoplasm of prostate; Z85.118 Personal history of other malignant neoplasm of bronchus and lung; E78.5 Hyperlipidemia, unspecified; I10 Essential (primary) hypertension; Z51.5 Encounter for palliative care; R33.9 Retention of urine, unspecified; Z87.891 Personal history of nicotine dependence; Z80.1 Family history of malignant neoplasm of trachea, bronchus and lung
CPT/HCPCS: 36415; 71010; 72131; 72158; 74176; 80048; 80076; 81003; 82947; 83605; 84153; 84403; 85025; 85027; 87086; 94640; 94664; 94760; 94761; 96365; 96366; 97116; 97162; 97166; 97530; 97535; 99285; A9577; G8978-GP; G8979-GP; G8987-GO; G8988-GO; J0696; J1100; J1170; J1650; J1815; J2270; J2405; J2550; J3370

== ENCOUNTER 2017-05-29 15:31 | Inpatient (IN) | payer OTHER ==
[~2017-05-29] VITALS: Ht 157.5 cm; Wt 74.1 kg
--- NOTE | ~2017-05-29 | HP ---
Unit #: [id number] #: [id number] Patient: SANJANA WEST [id number] [facility] [address] [facility]. [place], [place] [address] [id number] I MR#: [id number] NAME: SANJANA WEST ROOM: 332 Age: 87 Sex: M Admission Date: 05/29/2017 : 1930 Attending Physician: Franklin Aguila M.D. Primary Care Physician: William Bronson M.D. HISTORY AND PHYSICAL REASON FOR ADMISSION Comfort care. HISTORY OF PRESENT ILLNESS The patient is an 87-year-old male seen in consultation by Hospice from previous hospital admission at [facility] secondary to metastatic carcinoma. The patient was seen and evaluated. Hospices services discussed prognosis as well as it was reviewed with neurology oncology, as well as our hospitalist team. Ultimately it was elected that the patient be discharged to Hospice under scattered bed program for comfort measures only. Further management will be per the Hospice team. CURRENT CLINICAL DIAGNOSES 1. 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 2. Prior history of lung carcinoma. 3. Moderate to severe protein/caloric malnutrition. 4. Hyperlipidemia. 5. Hypertension. 6. Diabetes. DISPOSITION Hospice care. Dictated by Neto Rodriguez/lyla TD: 05/31/2017 09:33 JOB #: [id number] HISTORY AND PHYSICAL Page 1 of 1 X Nadya Ahmadi MD X HISTORY AND PHYSICAL
--- NOTE | ~2017-05-29 | DS ---
Unit #: [id number] #: [id number] Patient: SANJANA WEST [id number] [address] [place], [place] [address] [id number] I MR#: [id number] NAME: SANJANA WEST ROOM: 332 Age: 87 Sex: M Admission Date: 05/27/2017 : 1930 Discharge Date: 05/29/2017 Attending Physician: Franklin Aguila M.D. Primary Care Physician: William Bronson M.D. DISCHARGE SUMMARY FINAL DIAGNOSES 1. Failure to thrive. 2. Metastatic prostate cancer. 3. Intractable pain. SECONDARY DIAGNOSES 1. Hyperlipidemia. 2. Hypertension. 3. Diabetes. CONSULT Hospice. HOSPITAL COURSE An 87-year-old gentleman with metastatic cancer. He does have a history of hyperlipidemia, diabetes, lung cancer in the past. He had been seen by urology in the past and he was consulted at urology as well as oncology. Patient was seen by Dr. Lopez and associates, recommended radiation. However, (1) discussion was done and they favored conservative treatment with palliative care with Hospice. He has been seen by Hospice and will be transferred to a scatter bed program. DISCHARGE MEDICATIONS 1. Comfort meds. 2. Zofran 6 mg IV q.6 p.r.n. 3. Fentanyl patch 50 mcg transdermal q.7. 4. Dilaudid 8 mg p.o. q.1 hour p.r.n. moderate pain. 5. Dilaudid 0.25 mg IV q.12 p.r.n. nfotkwnc-zm-ntlgtj pain. 6. Refresh Plus both eyes b.i.d. His other medications will be discontinued as well as antibiotics. PROGNOSIS Days to weeks to live. Time spent coordinating discharge about 22 minutes. Dictated by... Franklin Aguila M.D. Unit #: [id number] #: [id number] Patient: SANJANA WEST CHARLENE/jovita TD: 05/30/2017 12:50 JOB #: [id number] DISCHARGE SUMMARY Page 1 of 1 X Franklin Aguila MD SUMMARY
--- NOTE | ~2017-05-29 | A ---
[facility] Nutrition Therapy DATE: 06/08/17 Patient: SANJANA WEST Physician: SHAUN Address: [address] [place] [address] Room/Bed: [address] [place] [address], Zip: [place] [address] Admit Date: 05/29/17 Date of : 32 Height: 5 2 Weight: 163 74.1 NUTRITIONAL ASSESSMENT: REASON: Length of stay assessment Admitting dx: 87 y/o male with mets cancer admitted to hospice/comfort care PMH: Reviewed Anthropometrics: Ht: 62", Wt: 163 lbs, BMI: 29 (overweight) Diet: Regular Assessment: Chart reviewed, events noted. H&P and discharge summary reviewed. Patient has mets cancer and was admitted to hospice care. He is comfort measures only and per MD documentation has days/weeks to live. RD intervention not appropriate, see recs below. Recommendations: Continue oral diet for pleasure per MD. Please consult RD for any further nutritional needs. Respectfully, Erin Mcconnell, RD, LD Food and Nutritional Services [facility] cc: client file
[~2017-05-29 15:31] MED LIST changes: +LORCET 5-325 M1 EACH PO
== END 2017-06-08 15:30 | disposition expired | DRG 722 ==
LOC: C3A PCU 15:31
DX: C61 Malignant neoplasm of prostate (principal); E43 Unspecified severe protein-calorie malnutrition; E11.9 Type 2 diabetes mellitus without complications; I10 Essential (primary) hypertension; G89.3 Neoplasm related pain (acute) (chronic); E78.5 Hyperlipidemia, unspecified; Z51.5 Encounter for palliative care; R62.7 Adult failure to thrive; Z85.118 Personal history of other malignant neoplasm of bronchus and lung; Z68.29 Body mass index [BMI] 29.0-29.9, adult
CPT/HCPCS: 94760; J0696; J1170; J2060; J2405; J2550